=== PATIENT | male | born 2000 | race Caucasian/White ===

== ENCOUNTER 2023-04-08 21:37 | Emergency (ER) | payer OTHER, MEDICAID ==
[~2023-04-08] VITALS: Ht 177.8 cm; Wt 79.4 kg
[~2023-04-08 21:37] MED LIST: BACI-418 TP; CYCL-711 PO; IBUP-2213 PO
[2023-04-08 21:51] VITALS: BP 108/61; PULSE 71; RESP 20; TEMP 97.3; O2SAT 97
[2023-04-08] MEDS ORDERED: NACL 0.9% 1,000 ML IV ONE (21:55)
[2023-04-08 22:04] LABS: BASOPHILS % (AUTO) 0.4 % (0.0-2.0); HEMATOCRIT 35.5 % (36-52); HEMOGLOBIN 12.4 g/dL (12.0-18.0); LYMPHOCYTES # (AUTO) 1.9 K/uL (2.0-11.5); LYMPHOCYTES % (AUTO) 29.9 % (20.5-51.1); MEAN CORPUSCULAR HEMOGLOBIN 29 pg (27-31); MEAN CORPUSCULAR HGB CONC 35 g/dL (33-37); MEAN CORPUSCULAR VOLUME 82.2 fL (80-94); MONOCYTES # (AUTO) 0.5 K/uL (0.8-1.0); MONOCYTES % (AUTO) 7.6 % (1.7-9.3); NEUTROPHILS # (AUTO) 3.9 K/uL (1.8-7.7); NEUTROPHILS % (AUTO) 62.1 % (42.2-75.2); PLATELET COUNT (AUTO) 274 K/uL (140-450); RED BLOOD CELL COUNT(AUTO) 4.32 MIL/uL (4.20-6.10); WHITE BLOOD COUNT (AUTO) 6.2 K/uL (4.8-10.8)
[2023-04-08 22:06] VITALS: BP 108/61; PULSE 80; RESP 12
[2023-04-08 22:30] LABS: INR 1.08 (0.8-1.2); PARTIAL THROMBOPLASTIN TIME 25.5 secs (22-35.6); PROTHROMBIN TIME 11.3 secs (10.8-13.4)
[2023-04-08 22:53] LABS: ALBUMIN 3.6 g/dL (3.4-5.0); ANION GAP 13.2 (8-16); CALCIUM 8.9 mg/dL (8.5-10.1); CARBON DIOXIDE 27.1 mmol/L (21-32); CREATININE 1.1 mg/dL (0.6-1.3); POTASSIUM 3.3 mmol/L (3.5-5.1); TOTAL BILIRUBIN 0.4 mg/dL (0.0-1.0); TOTAL PROTEIN, SERUM 6.8 g/dL (6.4-8.2)
[2023-04-09] MEDS ORDERED: LIDOCAINE/EPI 2% 1:100000 20 ML VIAL INJ ONE (01:10)
[2023-04-09 01:25] VITALS: O2SAT 98
[2023-04-09 01:30] VITALS: O2SAT 98
== END 2023-04-09 02:22 | disposition home or self-care (01) ==
LOC: MED 21:37
DX: S71.112A Laceration without foreign body, left thigh, initial encounter (principal); F11.10 Opioid abuse, uncomplicated; Z79.899 Other long term (current) drug therapy; Z79.2 Long term (current) use of antibiotics; Z79.1 Long term (current) use of non-steroidal anti-inflammatories (NSAID); X99.1XXA Assault by knife, initial encounter; Y93.89 Activity, other specified; Y92.254 Theater (live) as the place of occurrence of the external cause; Y99.8 Other external cause status
CPT/HCPCS: 12002; 36415; 73706; 80053; 85025; 85610; 85730; 90471; 90715; 96360; 99285; J2001; J7030; Q9967